=== PATIENT | female | born 2000 | race Caucasian/White ===

== ENCOUNTER 2022-05-02 08:00 | Outpatient (CLI) | payer OTHER ==
[2022-05-02 19:42] LABS: BACTERIAL VAGINOSIS DNA NEGATIVE (NEGATIVE); CANDIDA GLABRATA DNA NEGATIVE (NEGATIVE); CANDIDA GROUP DNA POSITIVE (NEGATIVE); CANDIDA KRUSEI DNA NEGATIVE (NEGATIVE); TRICHOMONAS VAGINALIS DNA NEGATIVE (NEGATIVE)
[2022-05-02 20:38] LABS: CHLAMYDIA TRACHOMATIS DNA NEGATIVE (NEGATIVE); NEISSERIA GONORRHOEAE DNA NEGATIVE (NEGATIVE)
== END 2022-05-02 23:59 | disposition home or self-care (01) ==
LOC: LAB.N 08:00
PROVIDERS: ATTEND Nurse Practitioner
DX: N89.8 Other specified noninflammatory disorders of vagina (principal)
CPT/HCPCS: 81514; 87491; 87591; 87661

== ENCOUNTER 2022-11-04 10:07 | Emergency (ER) | payer OTHER ==
--- NOTE | 2022-11-04 11:04 | ED Physician Documentation ---
PD HPI CHEST PAIN - Stated complaint Stated Complaint: CHEST PX - Chief complaint Chief Complaint: Cardiac - History obtained from History obtained from: Patient - Additional information Additional information: Patient is a 22-year-old female with no significant prior medical history presenting for evaluation of midsternal chest pain that she describes as a burning sensation that is been present for the past 2 days. Patient states it started on the afternoon of . She denies doing any exertion at the time. It has been constant. She does report it feels worse when laying back or bending over to tie her shoes or taking a deep breath. It has not worsened but she states that it does not has not gotten better or gone away.She denies any prior history of this pain. It does not radiate anywhere. She denies feeling short of breath. She denies recent fever, cough, congestion or illness. She has recently been traveling including getting back from [place] on Sunday. She denies any pain or swelling in her legs, history of PE or DVT. She does have a Nexplanon. She denies concerns for . She denies family history of early coronary artery disease.She denies drug or alcohol use. Review of Systems Constitutional: denies: Fever Cardiac: reports: Chest pain / pressure Respiratory: denies: Dyspnea GI: denies: Abdominal Pain, Vomiting Musculoskeletal: denies: Extremity swelling Neurologic: denies: Headache PD PAST MEDICAL HISTORY - Present Medications Home Medications: Ambulatory Orders Medication Instructions Recorded Confirmed No Known Home Medications 11/04/22 11/04/22 - Allergies Allergies/Adverse Reactions: Allergies Allergy/AdvReac Type Severity Reaction Status Date / Time No Known Drug Allergies Allergy Verified 11/04/22 10:29 PD ED PE NORMAL - General General: Alert and oriented X 3, No acute distress, Well developed/nourished - HEENT HEENT: Atraumatic - Neck Neck: Supple, no meningeal sign - Cardiac Cardiac: RRR, No murmur - Respiratory Respiratory: No respiratory distress, Clear bilaterally - Abdomen Abdomen: Soft, Non tender, Non distended - Derm Derm: Warm and dry - Extremities Extremities: No edema, No calf tenderness / cord - Neuro Neuro: Normal speech Results - Vitals Vitals: Vital Signs - 24 hr 11/04/22 11/04/22 10:26 13:22 Temperature 36.6 C Heart Rate 73 85 Respiratory 16 14 Rate Blood Pressure 116/59 L 105/68 O2 Saturation 96 100 Oxygen O2 Source Room air - EKG (time done) 1039 EKG releavant findings:: EKG personally interpreted by author of this note. Relevant findings are: Rate 64, normal sinus rhythm, no STEMI, no ST depressions, QTc 412 Rate: Rate (enter#) (64) Rhythm: NSR Intervals: No: Prolonged QT Ischemia: ST elevation c/w repol. No: ST elevation c/w ischemia Compare to prior EKG: Old EKG unavailable - Labs Labs: Laboratory Tests 11/04/22 11/04/22 11/04/22 11:02 11:02 11:02 WBC 6.5 RBC 4.07 L Hgb 12.2 Hct 37.1 MCV 91.2 MCH 30.0 MCHC 32.9 RDW 12.0 Plt Count 148 MPV 11.9 H Neut # (Auto) 4.4 Lymph # (Auto) 1.3 L [place] # (Auto) 0.7 Eos # (Auto) 0.0 Baso # (Auto) 0.0 Absolute Nucleated RBC 0.00 Nucleated RBC % 0.0 D-Dimer 313.0 H Sodium 138 Potassium 3.8 Chloride 106 Carbon Dioxide 25 Anion Gap 7.0 BUN 14 Creatinine 0.5 Estimated GFR (MDRD) 157 Glucose 91 Calcium 8.8 Total Bilirubin 0.8 AST 15 ALT 13 Alkaline Phosphatase 50 Troponin I High Sens Total Protein 7.3 Albumin 4.2 Globulin 3.1 Albumin/Globulin Ratio 1.4 Lipase 26 11/04/22 11:02 WBC RBC Hgb Hct MCV MCH MCHC RDW Plt Count MPV Neut # (Auto) Lymph # (Auto) [place] # (Auto) Eos # (Auto) Baso # (Auto) Absolute Nucleated RBC Nucleated RBC % D-Dimer Sodium Potassium Chloride Carbon Dioxide Anion Gap BUN Creatinine Estimated GFR (MDRD) Glucose Calcium Total Bilirubin AST ALT Alkaline Phosphatase Troponin I High Sens < 2.3 L Total Protein Albumin Globulin Albumin/Globulin Ratio Lipase PD Medical Decision Making - ED course Complexity details: reviewed results, re-evaluated patient, d/w patient ED course: Patient is a 22-year-old female presenting for evaluation of chest pain that is worse with taking a deep breath. She has no risk factors for coronary artery disease. An EKG demonstrates a normal sinus rhythm without acute ischemic changes.Patient has had recent travel so labs were obtained including a CBC, chemistries, troponin and D-dimer.Her D-dimer is elevated. Her chest x-ray which I reviewed shows no acute findings. A CT angio to evaluate for pulmonary embolism was obtained which is negative for a PE. Patient has not had worsening pain over the past week and again this seems very atypical for ACS based on patient's age, lack of risk factors as well as presentation with unremarkable work-up here today. Her pain has been constant for days without intensifying it. Pain is not migratory to suggest a dissection.She is ambulatory here without any worsening symptoms. Patient was counseled on continued supportive care as well as need for close follow-up with her PCP. She is also advised on concerning symptoms to return for. Departure - Departure Disposition: 01 Home, Self Care Clinical Impression: Chest pain Condition: Stable Instructions: ED Chest Pain Atypical Unkn Cause Comments: The exact cause of your chest pain is unclear at this time. At this time I do not see signs of a heart attack or a pulmonary embolism which is a blood clot in your lung. I would recommend close follow-up with your primary care provider if the symptoms are not improving this weekend. If it anytime your symptoms are worsening such as increased pain, pain in a new location or any new symptoms please consider return to the emergency department for another evaluation Discharge Date/Time: 11/04/22 13:31
--- NOTE | 2022-11-04 11:17 | XRAY Report ---
PROCEDURE: Chest 1 View X-Ray INDICATIONS: CP TECHNIQUE: One view of the chest was acquired. COMPARISON: None. FINDINGS: Surgical changes and devices: None. Lungs and pleura: No pleural effusions or pneumothorax. Lungs are clear. Mediastinum: Mediastinal contours appear normal. Heart size is normal. Bones and chest wall: No suspicious bony lesions. Overlying soft tissues appear unremarkable. IMPRESSION: No acute pulmonary process. Reviewed by: Cortney Jimenez MD on 11/04/2022 11:16 AM PDT Approved by: Cortney Jimenez MD on 11/04/2022 11:16 AM PDT Station ID: [id number]
[2022-11-04 11:21] LABS: BASOPHILS % (AUTO) 0.5 %; EOSINOPHILS % (AUTO) 0.5 %; HCT - HEMATOCRIT 37.1 % (37.0-47.0); HGB - HEMOGLOBIN 12.2 g/dL (12.0-16.0); LYMPHOCYTES # (AUTO) 1.3 10^3/uL (1.5-3.5); LYMPHOCYTES % (AUTO) 19.7 %; MEAN CORPUSCULAR HGB CONC 32.9 g/dL (32.0-36.0); MEAN CORPUSCULAR VOLUME 91.2 fL (81.0-99.0); MEAN PLATELET VOLUME 11.9 fL (7.9-10.8); MONOCYTES # (AUTO) 0.7 10^3/uL (0.0-1.0); MONOCYTES % (AUTO) 11.1 %; NEUTROPHILS # (AUTO) 4.4 10^3/uL (1.5-6.6); PLT - PLATELET COUNT 148 10^3/uL (130-450); RED BLOOD COUNT 4.07 10^6/uL (4.20-5.40); WHITE BLOOD COUNT 6.5 x10^3/uL (4.8-10.8)
[2022-11-04 11:30] LABS: ALBUMIN 4.2 g/dL (3.2-5.5); ALBUMIN/GLOBULIN RATIO 1.4 (1.0-2.2); BILIRUBIN,TOTAL 0.8 mg/dL (0.2-1.0); CALCIUM 8.8 mg/dL (8.5-10.3); CREATININE 0.5 mg/dL (0.4-1.0); POTASSIUM 3.8 mmol/L (3.5-5.0); TOTAL PROTEIN 7.3 g/dL (6.7-8.2)
[2022-11-04] MEDS ORDERED: iohexoL-300 100 ML VIAL ONE (12:12)
--- NOTE | 2022-11-04 13:06 | CT Report ---
PROCEDURE: ANGIO CHEST W/WO INDICATIONS: CP/elevated ddimer/recent travel CONTRAST: 80ml omni 300 TECHNIQUE: After the administration of intravenous contrast, 2 mm axial images were acquired from the pulmonary apices to the posterior costophrenic angles during the arterial phase. In addition, 1 mm lung kernel and 5 mm soft tissue kernel reconstructions were performed. 3-dimensional coronal oblique maximum int ensity projection (MIP) reformats, 8 mm axial MIP, and 5 mm coronal and sagittal MPR reformats were t hen performed through the thorax. For radiation dose reduction, the following was used: automated exp osure control, adjustment of mA and/or kV according to patient size. COMPARISON: Chest x-ray 11/04/2022 FINDINGS: Image quality: Excellent. Large vessels: No filling defects within the opacified pulmonary arteries, accounting for motion and contrast timing. No evidence of acute aortic syndrome or aortic aneurysm. Lungs and pleura: No consolidation. No pleural effusions. No pneumothorax. No suspicious pulmonary n odules which require follow up. Mediastinum: Heart size is normal. No pericardial effusions. No mediastinal adenopathy by size criter ia. Chest wall and lower neck: Thyroid is unremarkable. No axillary or supraclavicular adenopathy by size . Bones: No aggressive osseous abnormality. Upper Abdomen: Unremarkable. IMPRESSION: Lungs are clear. No pulmonary embolism. Reviewed by: Cortney Jimenez MD on 11/04/2022 1:05 PM PDT Approved by: Cortney Jimenez MD on 11/04/2022 1:05 PM PDT Station ID: [id number]
[2022-11-04 13:23] VITALS: BP 105/68
[2022-11-04] MEDS ORDERED: iohexoL-300 100 ML VIAL IVP ONE (15:51)
== END 2022-11-04 13:31 | disposition home or self-care (01) ==
LOC: ED 10:07
DX: R07.9 Chest pain, unspecified (principal)
CPT/HCPCS: 36415; 71045; 71275; 80053; 83690; 84484; 85025; 85379; 93005; 99283; 99284; Q9967

== ENCOUNTER 2024-02-13 08:00 | Outpatient (CLI) | payer OTHER ==
[2024-02-13 20:19] LABS: BACTERIAL VAGINOSIS DNA NEGATIVE (NEGATIVE); CANDIDA GLABRATA DNA NEGATIVE (NEGATIVE); CANDIDA GROUP DNA POSITIVE (NEGATIVE); CANDIDA KRUSEI DNA NEGATIVE (NEGATIVE); TRICHOMONAS VAGINALIS DNA NEGATIVE (NEGATIVE)
== END 2024-02-13 23:59 | disposition home or self-care (01) ==
LOC: LAB.N 08:00
PROVIDERS: ATTEND Physician Assistant
DX: N89.8 Other specified noninflammatory disorders of vagina (principal)
CPT/HCPCS: 81514; 87086; 87181